=== PATIENT | female | born 1970 | race Caucasian/White ===

== ENCOUNTER 2019-03-12 21:28 | Emergency (ER) | payer OTHER ==
[~2019-03-12] VITALS: Ht 165.1 cm; Wt 63.5 kg
[2019-03-12 21:37] VITALS: BP 150/90
--- NOTE | 2019-03-12 21:40 | NUR ---
TO LOBBY A/W BED VIA W/C
--- NOTE | 2019-03-12 22:15 | NUR ---
PT AMBULATED TO ER BED 02
--- NOTE | 2019-03-12 22:25 | NUR ---
PT BIB SELF C/O LEFT FLANK PAIN. PT STATES SUDDEN ONSET OF INTMERMITTENT SHARP 7/10 PAIN TO LEFT FLANK; +TENDERNESS; PT STATES PAIN IS ALLEVIATED WHEN LAYING DOWN. DENIES N/V/D, TRAUMA OR INJURY. PT ACTING APPRORPRIATLY, SPEAKING IN CLEAR AND COMPLETE SENTENCES. BREATHING EQUAL AND UNLABORED. SAFETY PRECUATIONS IMPLEMENTED. PENDING ANEL WEIR. PMH: DENIES
[2019-03-12] MEDS ORDERED: KETOROLAC 15 MG/ML VIAL IVP ONE (23:05)
[2019-03-12] MEDS ORDERED: LORazepam 2 MG/ML VIAL IVP ONE (23:05)
[2019-03-12 23:29] LABS: BASOPHILS # (AUTO) 0.1 K/uL (0.00-0.22); BASOPHILS % (AUTO) 1.2 % (0.0-2.0); EOSINOPHILS # (AUTO) 0.1 K/uL (0-0.4); EOSINOPHILS % (AUTO) 2.2 % (0.0-4.0); HEMATOCRIT 37.4 % (36-48); HEMOGLOBIN 12.5 g/dL (12.0-16.0); LYMPHOCYTES # (AUTO) 1.6 K/uL (2.5-16.5); MEAN CORPUSCULAR HEMOGLOBIN 32 pg (27-31); MEAN CORPUSCULAR HGB CONC 34 g/dL (33-37); MEAN CORPUSCULAR VOLUME 96.5 fL (80-94); MONOCYTES # (AUTO) 0.3 K/uL (0.8-1.0); MONOCYTES % (AUTO) 6.3 % (1.7-9.3); NEUTROPHILS # (AUTO) 2.7 K/uL (1.8-7.7); NEUTROPHILS % (AUTO) 57.3 % (42.2-75.2); PLATELET COUNT (AUTO) 237 K/uL (140-450); RED BLOOD CELL COUNT(AUTO) 3.87 MIL/uL (4.20-5.40); RED CELL DISTRIBUTION WIDTH 13.6 % (11.6-13.7); WHITE BLOOD COUNT (AUTO) 4.7 K/uL (4.8-10.8)
[2019-03-12 23:30] LABS: APPEARANCE,URINE CLOUDY (CLEAR); BILIRUBIN,URINE 1+ (NEGATIVE); BLOOD, URINE 3+ (NEGATIVE); COLOR,URINE YELLOW (YELLOW); LEUKOCYTE ESTERASE ,URINE NEGATIVE (NEGATIVE); NITRITE, URINE NEGATIVE (NEGATIVE); UGLUCOSE NEGATIVE (NEGATIVE)
[2019-03-12 23:36] LABS: ANION GAP 13.2 (8-16); CARBON DIOXIDE 25.6 mmol/L (21-32); CREATININE 1.1 mg/dL (0.6-1.3); POTASSIUM 3.8 mmol/L (3.5-5.1)
[2019-03-12 23:40] LABS: RBC,URINE TOO NUMEROUS TO COUN /HPF (0-5); WBC,URINE 0-5 /HPF (0-5)
[2019-03-12 23:42] LABS: ALBUMIN 3.5 g/dL (3.4-5.0); TOTAL BILIRUBIN 0.3 mg/dL (0.0-1.0)
--- NOTE | 2019-03-13 01:42 | NUR ---
PT AMBULATED W/ STEADY GAIT TO BR AT THIS TIME.
--- NOTE | 2019-03-13 02:00 | NUR ---
Patient discharged with v/s stable. Patient states she is being picked up by her friend to take her home. Patient acting appropriatly, states she is feeling better, denies pain at this time. Written and verbal after care instructions given and explained. Patient alert, oriented and verbalized understanding of instructions. Ambulatory with steady gait. All questions addressed prior to discharge. ID band removed. Patient advised to follow up with PMD. Rx of Naprosyn, and [place] given. Patient educated on indication of medication including possible reaction and side effects. Opportunity to ask questions provided and answered.
[2019-03-13 02:13] VITALS: BP 90/58
== END 2019-03-13 02:00 | disposition home or self-care (01) ==
LOC: MED 21:28
DX: N20.0 Calculus of kidney (principal); Z87.442 Personal history of urinary calculi; Z88.0 Allergy status to penicillin; Z98.890 Other specified postprocedural states; Z90.710 Acquired absence of both cervix and uterus
CPT/HCPCS: 36415; 80053; 81001; 81025; 83690; 84703; 85025; 96374; 96375; 99283; J1885; J2060